=== PATIENT | female | born 1965 | race Caucasian/White ===

== ENCOUNTER → 2017-01-07 | Outpatient (CLI) | payer OTHER ==
[~2017-01-07] MED LIST: CLARITIN10 MG PO; CLIMARA0.05 MG TOP; CONTRAVE ER 8-1 EACH PO; KLONOPIN0.5 M1 PO; LEVOTHROID (SY50 MCG PO; THERA-VITE W/ B1 TAB PO
== END | disposition disaster alternative care site (69) ==
LOC: GRAD 16:00
DX: R51 Headache (principal); R42 Dizziness and giddiness